=== PATIENT | female | born 1945 | race Caucasian/White ===

== ENCOUNTER 2021-04-20 05:37 | Emergency (ER) | payer MEDICARE, BC ==
[~2021-04-20] VITALS: Ht 162.6 cm; Wt 67.5 kg
[2021-04-20 05:47] VITALS: BP 132/62
[2021-04-20] MEDS ORDERED: TETanus/Pertussis (Acell)/Diphther VAC/PF (Tdap-Adult) 0.5ml syringe IMVAC ONE (06:05)
[2021-04-20] MEDS ORDERED: LIDOcaine 1% W/epiNEPHrine 1:200,000 10ml vial IJ ONE (06:05)
[2021-04-20] MEDS ORDERED: acetaminophen 325mg tablet PO ONE (06:05)
[2021-04-20] MEDS ORDERED: LIDOcaine 1% W/epiNEPHrine 1:100,000 20ml vial IJ ONE ×2 (06:10→07:20)
[2021-04-20] MEDS ORDERED: LIDOcaine 1% 30ml preserv. free vial ONE (08:00)
--- NOTE | 2021-04-20 09:00 | NUR ---
AT BEDSIDE SUTURING PT'S LACERATIONS. PT TOLERATING WELL.
[2021-04-20] MEDS ORDERED: ONDA4TAB12 PO (10:12)
[2021-04-20] MEDS ORDERED: AMOX-117 PO (10:12)
[2021-04-20] MEDS ORDERED: HYDR-3964 PO (10:12)
== END 2021-04-20 10:47 | disposition home or self-care (01) ==
LOC: ER 05:38
DX: S06.0X0A Concussion without loss of consciousness, initial encounter (principal); S02.2XXA Fracture of nasal bones, initial encounter for closed fracture; S01.21XA Laceration without foreign body of nose, initial encounter; S01.81XA Laceration without foreign body of other part of head, initial encounter; S01.511A Laceration without foreign body of lip, initial encounter; S16.1XXA Strain of muscle, fascia and tendon at neck level, initial encounter; I10 Essential (primary) hypertension; Z79.899 Other long term (current) drug therapy; W06.XXXA Fall from bed, initial encounter; Y93.89 Activity, other specified; Y92.89 Other specified places as the place of occurrence of the external cause; Y99.8 Other external cause status
CPT/HCPCS: 12011; 12053; 70450; 70486; 72125; 90471; 90715; 99285; J3490; 12014; 90472; 99284